=== PATIENT | female | born 1990 | race Caucasian/White ===

== ENCOUNTER 2020-07-12 09:34 | Outpatient (REF) | payer OTHER, SELFPAY ==
[2020-07-12 15:56] LABS: CT PCR NOT DETECTED (Not Detect.); NG PCR NOT DETECTED (Not Detect.)
[2020-07-13 09:28] LABS: BV Int Neg Control Negative (Negative); BV Int Pos Control Positive (Positive)
== END 2020-07-12 09:35 | disposition home or self-care (01) ==
LOC: HO.LAB 09:34
PROVIDERS: PCP Internal Medicine; Visit Provider Advanced Practice Midwife
DX: Z01.419 Encounter for gynecological examination (general) (routine) without abnormal findings (principal); N89.8 Other specified noninflammatory disorders of vagina; Z15.01 Genetic susceptibility to malignant neoplasm of breast; Z15.09 Genetic susceptibility to other malignant neoplasm; N94.10 Unspecified dyspareunia; Z30.431 Encounter for routine checking of intrauterine contraceptive device; R10.2 Pelvic and perineal pain
CPT/HCPCS: 87480; 87491; 87510; 87591; 87660

== ENCOUNTER 2020-07-22 11:15 | Outpatient (REF) | payer OTHER, SELFPAY ==
--- NOTE | 2020-07-22 11:26 | US_ITS ---
EXAMINATION: US PELVIS, COMPLETE CLINICAL INFORMATION: Pelvic and perineal pain. ADDITIONAL HISTORY: LMP on 07/17/2020. COMPARISON: Pelvic ultrasound on 09/09/2018 TECHNIQUE: Transabdominal and transvaginal imaging was performed. FINDINGS: The uterus measures 8.3 x 3.6 x 4.0 cm. The uterus is anteverted. No uterine masses are identified. Endometrium: 0.8 cm. The visualized endometrium appears slightly heterogeneous. An Intrauterine device is seen within the endometrial canal. The distal portion of the IUD terminates within the lower uterine segment. Right ovary: 3.6 x 2.5 x 2.6cm for a volume of 12.3 mL. Color flow is demonstrated within the right ovary.No adnexal masses are identified. The right ovary is unremarkable in appearance. Left ovary: 2.9 x 1.8 x 1.8cm for a volume of 4.9 mL. Normal color flow is demonstrated within the left ovary.Within the left ovary is a focal hyperechoic focus measuring 0.9 x 0.7 x 0.7 cm. This is not clearly identified on the comparison ultrasound from 2019. Free Fluid: None US/US transvaginal IMPRESSION: 1. An intrauterine device is seen within the endometrial canal. The distal portion of the IUD terminates within the lower uterine segment. 2. There is a 9 mm hyperechoic focus within the left ovary, new from the comparison examination. Recommend ultrasound follow-up in 8-12 weeks.
--- NOTE | 2020-07-22 11:26 | US_ITS ---
EXAMINATION: US PELVIS, COMPLETE CLINICAL INFORMATION: Pelvic and perineal pain. ADDITIONAL HISTORY: LMP on 07/17/2020. COMPARISON: Pelvic ultrasound on 09/09/2018 TECHNIQUE: Transabdominal and transvaginal imaging was performed. FINDINGS: The uterus measures 8.3 x 3.6 x 4.0 cm. The uterus is anteverted. No uterine masses are identified. Endometrium: 0.8 cm. The visualized endometrium appears slightly heterogeneous. An Intrauterine device is seen within the endometrial canal. The distal portion of the IUD terminates within the lower uterine segment. Right ovary: 3.6 x 2.5 x 2.6cm for a volume of 12.3 mL. Color flow is demonstrated within the right ovary.No adnexal masses are identified. The right ovary is unremarkable in appearance. Left ovary: 2.9 x 1.8 x 1.8cm for a volume of 4.9 mL. Normal color flow is demonstrated within the left ovary.Within the left ovary is a focal hyperechoic focus measuring 0.9 x 0.7 x 0.7 cm. This is not clearly identified on the comparison ultrasound from 2019. Free Fluid: None US/US pelvic complete IMPRESSION: 1. An intrauterine device is seen within the endometrial canal. The distal portion of the IUD terminates within the lower uterine segment. 2. There is a 9 mm hyperechoic focus within the left ovary, new from the comparison examination. Recommend ultrasound follow-up in 8-12 weeks.
== END 2020-07-22 11:16 | disposition home or self-care (01) ==
LOC: HO.US 11:15
PROVIDERS: PCP Internal Medicine; Visit Provider Advanced Practice Midwife
DX: R10.2 Pelvic and perineal pain (principal)
CPT/HCPCS: 76830; 76856

== ENCOUNTER 2020-07-28 16:57 | Outpatient (REF) | payer OTHER, SELFPAY ==
[2020-07-28 18:29] LABS: COVID-19 Test Negative (Negative); IDNOW Serial# 55D5AD1C
== END 2020-07-28 16:58 | disposition home or self-care (01) ==
LOC: HO.EMPCOV 16:57
PROVIDERS: Visit Provider Internal Medicine
DX: Z20.828 Contact with and (suspected) exposure to other viral communicable diseases (principal)
CPT/HCPCS: 87635; C9803

== ENCOUNTER → 2020-08-05 10:31 | Outpatient (BNVA) | payer OTHER, SELFPAY | PROVIDERS: PCP Internal Medicine; Visit Provider Advanced Practice Midwife | DX: Z76.89 Persons encountering health services in other specified circumstances (principal) ==

== ENCOUNTER 2020-09-14 11:49 | Outpatient (REF) | payer OTHER, SELFPAY ==
[2020-09-14 12:06] LABS: COVID-19 Test Negative (Negative)
== END 2020-09-14 11:50 | disposition home or self-care (01) ==
LOC: HO.EMPCOV 11:49
PROVIDERS: Visit Provider Internal Medicine
DX: Z20.822 Contact with and (suspected) exposure to COVID-19 (principal)
CPT/HCPCS: 36415; 87635; C9803

== ENCOUNTER → 2020-09-20 11:04 | Outpatient (BNVA) | payer OTHER, SELFPAY | PROVIDERS: PCP Internal Medicine; Visit Provider Surgery ==

== ENCOUNTER 2020-09-22 11:07 | Outpatient (REF) | payer OTHER, SELFPAY ==
--- NOTE | 2020-09-22 11:10 | XR_ITS ---
EXAMINATION: XR CHEST CLINICAL INFORMATION: Shortness of breath COMPARISON: Previous chest x-ray June 2015 TECHNIQUE: 2 views of the chest were obtained. FINDINGS: No significant abnormality is noted involving the heart, lungs, mediastinum, bony thorax or soft tissues. XR/XR chest 2V IMPRESSION: Unremarkable examination.
--- NOTE | 2020-09-22 11:10 | US_ITS ---
EXAMINATION: PELVIC ULTRASOUND CLINICAL INFORMATION: Pelvic and perineal pain COMPARISON: Previous ultrasound most recent July 2020 TECHNIQUE: Transabdominal and transvaginal pelvic ultrasound was performed. Transvaginal exam was performed for better visualization of the uterus, IUD and ovaries FINDINGS: The uterus is anteverted and measures 7.2 x 3.7 x 4.4 cm in dimension. No focal uterine lesion is seen. There is an IUD in the uterus. This appears slightly low in position seen in the lower uterine segment. This is 1.7 cm from the superior fundal Doppler the endometrium. This is similar position to previous exam. There is a nabothian cyst in the cervix. The right ovary measures 2.6 x 2.1 x 2.2 cm and is normal-appearing. The left ovary measures 2.8 x 1.9 x 2 cm. There is a 6 x 5 x 6 mm echogenic area in the left ovary that is similar to previous exam. There is no fluid in the pelvis. US/US pelvic complete IMPRESSION: IUD in the uterus. The IUD appears slightly low in position in the lower uterine segment 1.7 cm from the top of the fundal endometrium. This is unchanged from July 2020 exam.
--- NOTE | 2020-09-22 11:10 | US_ITS ---
EXAMINATION: PELVIC ULTRASOUND CLINICAL INFORMATION: Pelvic and perineal pain COMPARISON: Previous ultrasound most recent July 2020 TECHNIQUE: Transabdominal and transvaginal pelvic ultrasound was performed. Transvaginal exam was performed for better visualization of the uterus, IUD and ovaries FINDINGS: The uterus is anteverted and measures 7.2 x 3.7 x 4.4 cm in dimension. No focal uterine lesion is seen. There is an IUD in the uterus. This appears slightly low in position seen in the lower uterine segment. This is 1.7 cm from the superior fundal Doppler the endometrium. This is similar position to previous exam. There is a nabothian cyst in the cervix. The right ovary measures 2.6 x 2.1 x 2.2 cm and is normal-appearing. The left ovary measures 2.8 x 1.9 x 2 cm. There is a 6 x 5 x 6 mm echogenic area in the left ovary that is similar to previous exam. There is no fluid in the pelvis. US/US transvaginal IMPRESSION: IUD in the uterus. The IUD appears slightly low in position in the lower uterine segment 1.7 cm from the top of the fundal endometrium. This is unchanged from July 2020 exam.
== END 2020-09-22 11:08 | disposition home or self-care (01) ==
LOC: HO.US 11:07
PROVIDERS: PCP Internal Medicine; Visit Provider Advanced Practice Midwife
DX: R10.2 Pelvic and perineal pain (principal); R06.02 Shortness of breath
CPT/HCPCS: 71046; 76830; 76856

== ENCOUNTER 2020-09-29 06:39 | Day surgery (SDC) | payer OTHER, SELFPAY ==
[2020-09-22 13:33] VITALS: BMI 46.6
--- NOTE | 2020-09-28 10:28 | P.CONAN_ITS ---
Documented by User: Claire Dunbar 09/28/20 10:29 HPI - Anesthesia Eval Consult details Narrative: 30yo F for Upper Endoscopy PMFSH Past Medical History Medical History BRCA gene mutation positive History of postoperative nausea and vomiting Hx of migraine headaches Ovarian anomaly Vitamin D deficiency Family History Family History Maternal Grandmother History of breast cancer Paternal Aunt History of breast cancer History of ovarian cancer Paternal Grandmother History of breast cancer Maternal Grandfather History of lung cancer Father Lymphoma Mother Hypertension Sister No problems noted. Surgical History Surgical History History of cholecystectomy History of sleeve gastrectomy Hx of wisdom tooth extraction Social History Social History Alcohol intake: current Alcohol intake frequency: holidays/special occasions only Smoking Status: Never smoker Use of substances other than those prescribed or required for medical reasons: No Advance Directives: No (unknown) Advance Directives Information Provided: No Recently lost weight without trying: No Sexual orientation: Straight/Heterosexual Gender identity: female Meds Allergies Allergy/AdvReac Type Severity Reaction Status Date / Time No Known Allergies Allergy Verified 09/20/20 12:27 [No Known Allergies*] Home Medications Medication Instructions Recorded Confirmed Type cholecalciferol (vitamin D3) 250 250 mcg PO DAILY 07/12/20 09/22/20 History mcg (10,000 unit) capsule copper 380 square mm intrauterine INTRAUTERINE 07/12/20 09/20/20 History device multivitamin 1 tab PO DAILY 09/20/20 09/22/20 History Exam Exam Date and Time: September 28, 2020 1028 Height,Weight and Vital Signs: Height 5 ft 5.5 in Weight 129.183 kg Pertinent Lab Results Pertinent Lab Results: Laboratory Tests 07/16/20 07/16/20 15:50 15:50 WBC 9.5 Hgb 11.3 L Hct 35.3 L Plt Count 279 Sodium 139 Potassium 3.5 Chloride 106 Carbon Dioxide 26 BUN 13 Creatinine 0.79 Assessment and Plan Assessment Anesthesia Assessment: Chart Reviewed Documented by User: Carline Gutiérrez 09/29/20 07:54 [facility] Past Medical History Medical History BRCA gene mutation positive History of postoperative nausea and vomiting Hx of migraine headaches Ovarian anomaly Vitamin D deficiency Family History Family History Maternal Grandmother History of breast cancer Paternal Aunt History of breast cancer History of ovarian cancer Paternal Grandmother History of breast cancer Maternal Grandfather History of lung cancer Father Lymphoma Mother Hypertension Sister No problems noted. Family history of problems with anesthesia: No Surgical History Surgical History History of cholecystectomy History of sleeve gastrectomy Hx of wisdom tooth extraction History of Problems with Anesthesia: Yes (PONV) Social History Social History Alcohol intake: current Alcohol intake frequency: holidays/special occasions only Smoking Status: Never smoker Use of substances other than those prescribed or required for medical reasons: No Advance Directives: No (unknown) Advance Directives Information Provided: No Recently lost weight without trying: No Sexual orientation: Straight/Heterosexual Gender identity: female Meds Allergies Allergy/AdvReac Type Severity Reaction Status Date / Time No Known Allergies Allergy Verified 09/20/20 12:27 [No Known Allergies*] Home Medications Medication Instructions Recorded Confirmed Type cholecalciferol (vitamin D3) 250 250 mcg PO DAILY 07/12/20 09/22/20 History mcg (10,000 unit) capsule copper 380 square mm intrauterine INTRAUTERINE 07/12/20 09/20/20 History device multivitamin 1 tab PO DAILY 09/20/20 09/22/20 History Exam Height,Weight and Vital Signs: Vital Signs Temp Pulse Resp BP Pulse Ox 09/29/20 07:01 97 F 67 18 110/52 L 98 Narrative Narrative: Patient states unable to give urine sample. Aware of possible anesthetic risks with early . States absolutely no chance of . Airway Mallampati Class: II TM Dist: >3cm Neck ROM: Full Loose/Missing/Broken Teeth: No Heart: RRR Lungs: CTAB Assessment and Plan Assessment Anesthesia Assessment: Anesthesia Plan Discussed and Chart Reviewed Final Anesthetic Review NPO: Yes ASA Class: III Final Preanesthetic Review: No Changes in Pt Med Stat, Meds/Allgs Chart Reviewed, Consent Obtained/Reviewed and Anes Risks/Benef Reviewed Patient Risk: Intermediate Procedure Risk: Low Anesthetic Plan Anesthetic Plan: MAC: Disposition: Standard PACU
--- NOTE | 2020-09-28 15:16 | MHC.SHP ---
Pre-Procedural Eval Section B Chief Complaint: reflux Allergies: Allergies Allergy/AdvReac Type Severity Reaction Status Date / Time No Known Allergies Allergy Verified 09/20/20 12:27 [No Known Allergies*] Plan I have reviewed the history and physical and performed a pertinent physical examination on my patient. No changes have occurred unless specified.
[2020-09-29 07:01] VITALS: BP 110/52; PULSE 67; RESP 18; TEMP 36.1; O2SAT 98
[2020-09-29] MEDS: Lactated Ringers 1,000 ML 100 ML IVCONT (07:15)
[2020-09-29] MEDS: ondansetron HCL 4 MG/2 ML VIAL IVPUSH (07:50)
--- NOTE | 2020-09-29 08:06 | PM.OP ---
Brief Operative Note Date of Service: 09/29/20 Pre-op diagnosis: History of sleeve gastrectomy with weight gain Post-op diagnosis: other (Same and normal upper endoscopy) Procedure: Esophagogastroduodenoscopy and antral biopsy x2 Implants: None Surgeon: Yari Cm MD Anesthesia: MAC Estimated blood loss (mL): 0 Pathology: other (Antrum x2) Condition: stable Disposition: PACU
[2020-09-29 08:33] VITALS: BP 112/60; PULSE 65; RESP 12; TEMP 36.4; O2SAT 99
[2020-09-29 08:47] VITALS: BP 105/59; PULSE 72; RESP 18; O2SAT 97
--- NOTE | 2020-09-29 08:55 | OP_ITS ---
SURGEON: Yari Cm MD PREOPERATIVE DIAGNOSIS: POSTOPERATIVE DIAGNOSIS: PROCEDURE PERFORMED: Esophagogastroduodenoscopy and antral biopsy x2. ESTIMATED BLOOD LOSS: COMPLICATIONS: None. ANESTHESIA: Total intravenous anesthesia with propofol given by the nurse tie inspector. ASSISTANTS: None. SPECIMENS: PREPROCEDURE DIAGNOSIS: Weight gain after sleeve gastrectomy. POSTPROCEDURE DIAGNOSIS: Normal sleeve gastrectomy. CONDITION: Postprocedure, good. DESCRIPTION OF PROCEDURE: The patient was brought into the operating room on the stretcher and placed in the left lateral decubitus position. A safety time-out was performed. A bite block was placed between the teeth. Total intravenous anesthesia was administered by the nurse tie inspector. Once the patient was adequately sedated, the gastroscope was placed in the posterior oropharynx, passed down the esophagus, evaluating the esophageal mucosa which was normal. Gastroscope was passed down the esophagus, evaluating the esophageal mucosa which was normal and then the GE junction was located at 37 cm from the incisors. There was no evidence of hiatal hernia. Gastroscope was passed to the gastric sleeve, which was normal size for age. There was no significant increase in size, torsion, or stenosis of the sleeve. The gastroscope was passed to the pre-pyloric region, where 2 biopsies were taken from the antrum to rule out H pylori. The gastroscope was passed through the pylorus into the duodenum, down to the 3rd portion of duodenum, all of which was normal. All of these portions of the upper endoscopy were documented using photo documentation. The gastroscope was retracted back into the stomach. Stomach was desufflated and gastroscope was removed without difficulty. The patient tolerated the procedure well and was sent to recovery room in stable condition. FINDINGS: Normal gastric sleeve slightly enlarged in size, but nothing significant. No evidence of hiatal hernia. There was no torsion or stenosis of the gastric sleeve. GE junction was located at 37 cm from the incisors. Yari Cm MD UM/MODL / [id number]
--- NOTE | 2020-09-29 09:16 | HO.POSTANES ---
Post Anesthesia Evaluation Post Anesthesia Evaluation Vital Signs: Vital Signs Temp Pulse Resp BP Pulse Ox 09/29/20 08:47 97.5 F 72 18 105/59 L 97 09/29/20 08:33 97.5 F 65 12 112/60 99 09/29/20 07:01 97 F 67 18 110/52 L 98 Anesthesia: Monitored Mental Status: Awake Pain Control: Satisfactory Nausea/Vomiting: None Hydration: Adequate Anesthesia-Related Issues: No Anes. Related Issues
== END 2020-09-29 09:18 | disposition home or self-care (01) ==
PROVIDERS: PCP Internal Medicine; Visit Provider Surgery
PROC: 0DJ08ZZ Inspection of Upper Intestinal Tract, Via Natural or Artificial Opening Endoscopic (ICD-10-PCS; CPT 43235; principal; 2020-09-29 08:00)
DX: K21.9 Gastro-esophageal reflux disease without esophagitis (principal); R06.02 Shortness of breath; E66.01 Morbid (severe) obesity due to excess calories; Z68.42 Body mass index [BMI] 45.0-49.9, adult; E55.9 Vitamin D deficiency, unspecified; Z98.84 Bariatric surgery status; Z90.49 Acquired absence of other specified parts of digestive tract; Z15.01 Genetic susceptibility to malignant neoplasm of breast
CPT/HCPCS: 43239; 88305; 88342; J2250; J2405

== ENCOUNTER → 2020-10-04 08:26 | Outpatient (BNVA) | payer OTHER, SELFPAY | PROVIDERS: PCP Internal Medicine; Visit Provider Surgery ==

== ENCOUNTER 2020-10-07 09:23 | Outpatient (REF) | payer OTHER, SELFPAY ==
[2020-10-07 10:04] LABS: MANUAL DIFF FLAG NO
[2020-10-07 10:11] LABS: Basophils Percent Auto 0.6 % (0-2); Eosinophils Absolute Auto 0.1 X10*3/uL (0.0-0.4); Hematocrit 35.8 % (37-47); Imm Gran Abs Auto 0.02 X10*3/uL (0.00-0.03); Imm Gran Pct Auto 0.3 % (0.0-0.4); Lymphocytes Absolute Auto 1.6 X10*3/uL (1.2-4.9); Lymphocytes Percent Auto 25.8 % (20-40); Mean Corpuscular HGB Conc 33.5 g/dl (31.0-35.0); Mean Corpuscular Hemoglobin 27.5 pg (27.0-33.0); Mean Corpuscular Volume 81.9 fL (80-98); Mean Platelet Volume 12.3 fL (9.4-12.3); Monocytes Absolute Auto 0.5 X10*3/uL (0.1-1.2); Monocytes Percent Auto 8.6 % (2-11); Neutrophils Percent Auto 63.7 % (45-73); Platelet Count 269 X10*3/uL (160-400); Red Blood Count 4.37 X10*6/uL (4.20-5.50); Red Cell Distribution Width 13.1 % (11.0-16.0); White Blood Count 6.3 X10*3/uL (4.8-10.8)
[2020-10-07 10:44] LABS: Alanine Aminotransferase 23 U/L (0-31); Albumin Level 4.2 g/dL (3.5-5.0); Alkaline Phosphatase 67 U/L (39-117); Anion Gap 13 (12-20); Aspartate Amino Transferase 19 U/L (5-31); Bilirubin Total 0.7 mg/dL (0.0-1.0); Blood Urea Nitrogen 15 mg/dL (9-16); C Reactive Protein 0.79 mg/dL (< or = 0.50); Calcium 9.2 mg/dL (8.4-10.2); Carbon Dioxide 25 mmol/L (22-29); Chloride 105 mmol/L (96-108); Cholesterol 167 mg/dL; Estimated Glomerular Filt Rate > 60; Glucose Fasting 89 mg/dL (60-99); HDL Cholesterol 42 mg/dL; Iron 80 mcg/dL (30-160); LDL Cholesterol Calculated 108 mg/dl; Percent Iron Saturation 21 % (15-50); Potassium 4.2 mmol/L (3.3-5.1); Sodium 139 mmol/L (135-145); Total Iron Binding Capacity 378 mcg/dL (228-428); Triglycerides 89 mg/dL; Unsaturated Iron Binding 298 ug/dL
[2020-10-07 10:50] LABS: Thyroid Stimulating Hormone 1.41 uIU/mL (0.32-4.0); Vitamin D 25-OH Total 25.4 ng/mL (>30)
[2020-10-07 11:11] LABS: Vitamin B12 845 pg/mL (200-900)
[2020-10-08 06:27] LABS: CA-125 7 U/mL (<35)
[2020-10-08 13:13] LABS: Calcium (PTHI) 9.4 mg/dL (8.6-10.2); PTHI 27 pg/mL (14-64)
[2020-10-11 16:12] LABS: Zinc 71 mcg/dL (60-130)
[2020-10-12 19:47] LABS: Vitamin A 31 mcg/dL (38-98)
[2020-10-14 06:07] LABS: Vitamin B1 <6 nmol/L (8-30)
== END 2020-10-07 09:24 | disposition home or self-care (01) ==
LOC: HO.10HDL 09:23
PROVIDERS: Absent Provider Advanced Practice Midwife; Visit Provider Surgery
DX: Z01.818 Encounter for other preprocedural examination (principal); R10.2 Pelvic and perineal pain; Q50.39 Other congenital malformation of ovary; Z15.01 Genetic susceptibility to malignant neoplasm of breast; Z15.09 Genetic susceptibility to other malignant neoplasm
CPT/HCPCS: 36415; 80053; 80061; 82306; 82607; 83540; 83970; 84425; 84443; 84590; 84630; 85025; 86140; 86304

== ENCOUNTER → 2020-10-19 08:21 | Outpatient (BNVA) | payer OTHER, SELFPAY | PROVIDERS: PCP Internal Medicine; Visit Provider Dietitian, Registered ==

== ENCOUNTER → 2020-10-22 16:11 | Outpatient (BNVA) | payer OTHER, SELFPAY | PROVIDERS: PCP Internal Medicine; Visit Provider Advanced Practice Midwife ==

== ENCOUNTER → 2020-10-28 08:16 | Outpatient (BNVA) | payer OTHER, SELFPAY | PROVIDERS: PCP Internal Medicine; Visit Provider Dietitian, Registered ==

== ENCOUNTER → 2020-11-01 11:46 | Outpatient (BNVA) | payer OTHER, SELFPAY | PROVIDERS: PCP Internal Medicine; Visit Provider Surgery ==

== ENCOUNTER → 2020-11-22 09:17 | Outpatient (BNVA) | payer OTHER, SELFPAY | PROVIDERS: PCP Internal Medicine; Visit Provider Surgery ==

== ENCOUNTER → 2020-12-14 15:48 | Outpatient (BNVA) | payer OTHER, SELFPAY | PROVIDERS: PCP Internal Medicine; Visit Provider Surgery ==

== ENCOUNTER → 2021-01-04 14:45 | Outpatient (BNVA) | payer OTHER, SELFPAY | PROVIDERS: PCP Internal Medicine; Visit Provider Surgery ==

== ENCOUNTER → 2021-02-04 14:33 | Outpatient (BNVA) | payer OTHER, SELFPAY | PROVIDERS: PCP Internal Medicine; Visit Provider Surgery ==

== ENCOUNTER 2021-02-09 11:04 | Outpatient (REF) | payer OTHER, SELFPAY ==
--- NOTE | ~2021-02-09 | US_ITS ---
EXAMINATION:US transvaginal, US pelvic complete CLINICAL INFORMATION: Reason for Exam EVALUATE LEFT OVARIAN ECHOGENICITY COMPARISON: No priors available. LMP: 01/09/2021 FINDINGS: UTERUS: The uterus is anteverted. Size: 8.1 x 3.4 x 4.9 cm. Uterine mass: There is no uterine mass. Cervix: Grossly unremarkable. Endometrium: No ultrasound evidence of endometrial lesion. endometrial thickness measures 1.2 cm IUD found in place within the endometrium. ADNEXA: Normal Right ovary: Mildly complex septated cyst in the right ovary 2.9 x 1.8 x 3 cm. Left ovary: There is echogenic 6 x 4 mm structure in the left ovary raise concern for possible dermoid. This has not changed. Doppler exam: Normal Doppler flow identified in both ovaries. FREE FLUID: Trace amount of free fluid. OTHER FINDINGS: None US/US pelvic complete IMPRESSION: 1. IUD in place properly positioned. 2. Mildly complex cystic structure found in the right ovary 3 cm. Newly found on today's exam. Consider correlation with follow-up ultrasound in 6-12 weeks. 3. Redemonstration of subcentimeter echogenic structure in the left ovary, nonspecific this has not changed.
--- NOTE | ~2021-02-09 | US_ITS ---
EXAMINATION:US transvaginal, US pelvic complete CLINICAL INFORMATION: Reason for Exam EVALUATE LEFT OVARIAN ECHOGENICITY COMPARISON: No priors available. LMP: 01/09/2021 FINDINGS: UTERUS: The uterus is anteverted. Size: 8.1 x 3.4 x 4.9 cm. Uterine mass: There is no uterine mass. Cervix: Grossly unremarkable. Endometrium: No ultrasound evidence of endometrial lesion. endometrial thickness measures 1.2 cm IUD found in place within the endometrium. ADNEXA: Normal Right ovary: Mildly complex septated cyst in the right ovary 2.9 x 1.8 x 3 cm. Left ovary: There is echogenic 6 x 4 mm structure in the left ovary raise concern for possible dermoid. This has not changed. Doppler exam: Normal Doppler flow identified in both ovaries. FREE FLUID: Trace amount of free fluid. OTHER FINDINGS: None US/US transvaginal IMPRESSION: 1. IUD in place properly positioned. 2. Mildly complex cystic structure found in the right ovary 3 cm. Newly found on today's exam. Consider correlation with follow-up ultrasound in 6-12 weeks. 3. Redemonstration of subcentimeter echogenic structure in the left ovary, nonspecific this has not changed.
== END 2021-02-09 11:05 | disposition home or self-care (01) ==
LOC: HO.US 11:04
PROVIDERS: Visit Provider Obstetrics & Gynecology Gynecologic Oncology
DX: N83.201 Unspecified ovarian cyst, right side (principal)
CPT/HCPCS: 76830; 76856

== ENCOUNTER → 2021-03-08 16:01 | Outpatient (BNVA) | payer OTHER, SELFPAY | PROVIDERS: PCP Internal Medicine; Referring Provider Internal Medicine; Visit Provider Surgery ==

== ENCOUNTER → 2021-04-04 15:04 | Outpatient (BNVA) | payer OTHER, SELFPAY | PROVIDERS: PCP Internal Medicine; Visit Provider Surgery ==

== ENCOUNTER → 2021-05-30 15:01 | Outpatient (BNVA) | payer OTHER, SELFPAY | PROVIDERS: PCP Internal Medicine; Visit Provider Surgery | DX: E66.01 Morbid (severe) obesity due to excess calories (principal); E66.9 Obesity, unspecified ==

== ENCOUNTER → 2021-06-30 15:03 | Outpatient (BNVA) | payer OTHER, SELFPAY | PROVIDERS: PCP Internal Medicine; Referring Provider Internal Medicine; Visit Provider Physician Assistant Surgical ==

== ENCOUNTER → 2021-07-11 10:01 | Outpatient (BNVA) | payer OTHER, SELFPAY | PROVIDERS: PCP Internal Medicine; Referring Provider Internal Medicine; Visit Provider Dietitian, Registered | DX: E66.01 Morbid (severe) obesity due to excess calories (principal) | CPT/HCPCS: 97803 ==

== ENCOUNTER 2021-07-14 09:02 | Outpatient (REF) | payer OTHER, SELFPAY ==
[2021-07-14 14:35] LABS: CT PCR NOT DETECTED (Not Detect.); NG PCR NOT DETECTED (Not Detect.)
== END 2021-07-14 09:03 | disposition home or self-care (01) ==
LOC: HO.LAB 09:02
PROVIDERS: PCP Internal Medicine; Visit Provider Advanced Practice Midwife
DX: Z01.419 Encounter for gynecological examination (general) (routine) without abnormal findings (principal); Z20.822 Contact with and (suspected) exposure to COVID-19
CPT/HCPCS: 87491; 87591; 88142

== ENCOUNTER 2021-08-12 11:53 | Outpatient (REF) | payer OTHER, SELFPAY ==
--- NOTE | ~2021-08-12 | MR_ITS ---
EXAMINATION: MR BREAST WITHOUT AND WITH CONTRAST, BILATERAL CLINICAL INFORMATION: High-risk screening. BRCA1 gene mutation. COMPARISON: 01/15/2020, 12/12/2018 and 11/13/2017 TECHNIQUE: Imaging was performed with a dedicated breast coil. Prior to the administration of contrast, bilateral axial T1 and bilateral axial T2 weighted sequences were obtained. After the uneventful administration of?10 mL of Gadavist, dynamic contrast-enhanced VIBRANT series through the breasts in the axial plane were performed. Subtracted images were performed and reviewed. A delayed sagittal sequence through both breasts was acquired. Additionally, CAD post-processing, including maximum intensity projections, 3-D reconstructions and kinetic analysis, were performed an independent workstation and reviewed by the interpreting radiologist is a portion of this exam. FINDINGS: The breasts are comprised of scattered fibroglandular parenchyma. The tissue undergoes mild background enhancement. LEFT BREAST: No suspicious masslike or non-masslike enhancement. No abnormal skin thickening or nipple retraction. No abnormal architectural distortion. Review of the T2 weighted images demonstrates no fibrocystic changes or dilated ducts. Review of kinetic images reveals no additional findings. Volume renderings demonstrate a subtle increase in background enhancement in the central left breast compared to the right unchanged from prior MR exams. RIGHT BREAST: No suspicious masslike or non-masslike enhancement. No abnormal skin thickening or nipple retraction. No abnormal architectural distortion. Review of the T2 weighted images demonstrates no fibrocystic changes or dilated ducts. Review of kinetic images reveals no additional findings. There are bilateral normal appearing intramammary lymph nodes. There is no suspicious internal mammary chain or axillary adenopathy. Limited views of the chest and abdomen are unremarkable. MR/MR breast BI wo/w con IMPRESSION: No MR specific evidence of malignancy. ASSESSMENT: LEFT BREAST: BI-RADS Category 2, benign finding. RIGHT BREAST: BI-RADS Category 2, benign finding. RECOMMENDATIONS: Bilateral breast MRI in 12 months time per published guidelines in high-risk patients.
== END 2021-08-12 11:54 | disposition home or self-care (01) ==
LOC: HO.MRI 11:53
PROVIDERS: PCP Internal Medicine; Visit Provider Internal Medicine Medical Oncology
DX: Z15.01 Genetic susceptibility to malignant neoplasm of breast (principal)
CPT/HCPCS: 77049; A9585

== ENCOUNTER → 2021-08-15 10:01 | Outpatient (BNVA) | payer OTHER, SELFPAY | PROVIDERS: PCP Internal Medicine; Referring Provider Internal Medicine; Visit Provider Dietitian, Registered | DX: E66.01 Morbid (severe) obesity due to excess calories (principal) | CPT/HCPCS: 97803 ==

== ENCOUNTER 2021-09-07 13:08 | Outpatient (REF) | payer OTHER, SELFPAY ==
--- NOTE | ~2021-09-07 | XR_ITS ---
EXAMINATION: XR HIP, LEFT CLINICAL INFORMATION: Unspecified injury of the left hip. Initial encounter. COMPARISON: None TECHNIQUE: Single frontal view of the pelvis and 2 views of the left hip were obtained. FINDINGS: Pelvis: The bony alignment is intact. Cortices are intact. Both SI joints and symphysis pubis is unremarkable. Visualized proximal part of both femur appear unremarkable. Incidental note is made of presence of an intrauterine contraceptive device. Left hip: The bony alignment is intact. The cortices are intact. Articular margins, joint space and periarticular soft tissues are unremarkable. XR/XR hip LT w PEL1V IMPRESSION: Unremarkable radiographic appearance of the pelvis and left hip.
== END 2021-09-07 13:09 | disposition home or self-care (01) ==
LOC: HO.XRAY 13:08
PROVIDERS: PCP Internal Medicine; Visit Provider Anesthesiology
DX: S79.912D Unspecified injury of left hip, subsequent encounter (principal)
CPT/HCPCS: 73502

== ENCOUNTER 2021-09-23 13:24 | Outpatient (REF) | payer OTHER, SELFPAY ==
--- NOTE | ~2021-09-23 | XR_ITS ---
EXAMINATION: XR FOOT, LEFT CLINICAL INFORMATION: M79.672 - Pain in left foot COMPARISON: None TECHNIQUE: AP, lateral, and oblique views of the left foot. FINDINGS: There is no acute or healing fracture, dislocation, destructive process. Normal bony mineralization. No destructive process or periostitis. No focal joint narrowing or erosive change. Subtalar joint appears normal. Retrocalcaneal recess is preserved. XR/XR foot LT min 3V IMPRESSION: Normal left foot.
== END 2021-09-23 13:25 | disposition home or self-care (01) ==
LOC: HO.HOSX 13:24
PROVIDERS: PCP Internal Medicine; Visit Provider Physician Assistant
DX: M79.672 Pain in left foot (principal)
CPT/HCPCS: 73630

== ENCOUNTER → 2021-09-23 14:09 | Outpatient (BNVA) | payer OTHER, SELFPAY | PROVIDERS: PCP Internal Medicine; Visit Provider Internal Medicine | DX: Z13.89 Encounter for screening for other disorder (principal) | CPT/HCPCS: 99202 ==

== ENCOUNTER 2022-06-21 14:59 | Outpatient (REF) | payer OTHER, SELFPAY | END 2022-06-21 15:00 | disposition home or self-care (01) | LOC: HO.LAB 14:59 | PROVIDERS: Visit Provider Hospitalist | DX: R30.0 Dysuria (principal); R31.9 Hematuria, unspecified | CPT/HCPCS: 87086 ==

== ENCOUNTER 2022-07-18 10:16 | Outpatient (REF) | payer OTHER, SELFPAY ==
[2022-07-18 16:40] LABS: CT PCR NOT DETECTED (Not Detect.); NG PCR NOT DETECTED (Not Detect.)
[2022-07-19 13:57] LABS: BV Int Neg Control Negative (Negative); BV Int Pos Control Positive (Positive)
== END 2022-07-18 10:17 | disposition home or self-care (01) ==
LOC: HO.LNP 10:16
PROVIDERS: Visit Provider Advanced Practice Midwife
DX: Z01.419 Encounter for gynecological examination (general) (routine) without abnormal findings (principal)
CPT/HCPCS: 87480; 87491; 87510; 87591; 87660

== ENCOUNTER 2022-07-18 10:51 | Outpatient (REF) | payer OTHER, SELFPAY ==
[2022-07-19 07:06] LABS: Syphilis Screen Nonreactive (Nonreactive)
[2022-07-19 07:37] LABS: HIV AB/AG Nonreactive (Nonreactive); HIV Num 1 0.09 S/CO (0.00-0.99); Hepatitis B Core Antibody Nonreactive (Nonreactive); ~HepC Num1 0.21 S/CO (0.00-0.79); ~Hepatitis C Antibody Nonreactive (Nonreactive)
== END 2022-07-18 10:52 | disposition home or self-care (01) ==
LOC: HO.10HDL 10:51
PROVIDERS: Visit Provider Advanced Practice Midwife
DX: Z11.4 Encounter for screening for human immunodeficiency virus [HIV] (principal); Z20.2 Contact with and (suspected) exposure to infections with a predominantly sexual mode of transmission
CPT/HCPCS: 36415; 86704; 86780; 86803; 87389

== ENCOUNTER 2022-08-21 15:02 | Outpatient (REF) | payer OTHER, SELFPAY ==
--- NOTE | ~2022-08-21 | US_ITS ---
EXAMINATION: US PELVIS CLINICAL INFORMATION: Congenital malformation of the ovary. Question dermoid. COMPARISON: 02/09/2021 TECHNIQUE: Ultrasound of the pelvis is performed using both transabdominal and transvaginal transducers along with Doppler. Transvaginal imaging is performed due to inadequate visualization transabdominally. FINDINGS: Uterus: The uterus is anteverted and measures 7.5 x 3.7 x 4.1 cm. The double wall endometrial thickness is 7 mm. There is an IUD in place. This appears low in position within the uterus, and obliquely positioned. The uterus is smooth in contour and has normal myometrial echogenicity. No visible fibroid. Adnexa: Both ovaries are visualized. There is normal color flow to the adnexa. There is no ovarian torsion. There is no pelvic ascites or fluid collection. Right ovary measures 3 x 2.5 x 3.7 cm. Multiple follicles noted. Hypoechoic region in the right adnexa which measures 1.8 x 1.5 x 1.5 cm. This could represent an additional complex cyst. Based on the positioning, this could also be a pedunculated uterine fibroid. Left ovary measures 3.3 x 2.5 x 3.6 cm. Redemonstration of the dermoid measuring 2.3 x 2 x 2.8 cm. US/US pelvic and transvaginal IMPRESSION: 1. Redemonstration of left ovarian dermoid. There is a hypoechoic region in the right adnexa which could represent a complex cyst or a pedunculated uterine fibroid. 2. IUD in place, which appears low in position, and obliquely positioned.
== END 2022-08-21 15:03 | disposition home or self-care (01) ==
LOC: HO.US 15:02
PROVIDERS: Visit Provider Advanced Practice Midwife
DX: Q50.39 Other congenital malformation of ovary (principal)
CPT/HCPCS: 76830; 76856

== ENCOUNTER → 2022-09-06 08:29 | Outpatient (BNVA) | payer OTHER, SELFPAY | PROVIDERS: PCP Internal Medicine; Visit Provider Advanced Practice Midwife | DX: Q50.39 Other congenital malformation of ovary (principal) ==

== ENCOUNTER 2022-09-06 10:21 | Outpatient (REF) | payer OTHER, SELFPAY ==
[2022-09-07 10:23] LABS: CA-125 59 U/mL (<35)
== END 2022-09-06 10:22 | disposition home or self-care (01) ==
LOC: HO.WFDLDS 10:21
PROVIDERS: Visit Provider Advanced Practice Midwife
DX: N83.299 Other ovarian cyst, unspecified side (principal)
CPT/HCPCS: 36415; 86304

== ENCOUNTER 2022-09-20 08:03 | Outpatient (REF) | payer OTHER, SELFPAY ==
--- NOTE | ~2022-09-20 | MR_ITS ---
EXAMINATION: MR PELVIS WITHOUT AND WITH CONTRAST CLINICAL INFORMATION: 31-year-old female with complex ovarian mass, BRCA 1 positive. COMPARISON: Pelvic ultrasound from 02/09/2021 and 08/21/2022 TECHNIQUE: MR imaging of the pelvis is performed on a high-field magnet using standard sequences without and with intravenous administration of 10 mL Gadavist. FINDINGS: Uterus and cervix: The anteflexed, anteverted uterus measures 8 x 3.4 x 4.8 cm (cervix to fundus x AP x transverse dimension). No evidence of cervical mass. A contraceptive device is located within the endometrium and the lower tip of the device is seen at the level of the internal cervical os. The junctional zone of myometrium is normal. No evidence of adenomyosis or uterine leiomyoma. Adnexa: The right ovary measures approximately 3.5 x 4.5 x 3.3 cm and left ovary approximately 3 x 2.9 x 2.8 cm. There are foci of intrinsic T1 signal shortening within each ovary that exhibit T2 signal shading, and largest of these in the right and left ovary measure up to 1.8 cm and 2.8 cm, respectively. The findings are consistent with endometriosis involving the ovaries. There are no masses of fat signal intensity. No evidence of ovarian dermoid. The largest follicles within the right and left ovary measure 1.5 cm and 1.2 cm, respectively. Free fluid: None. Lymphovascular: Unremarkable. Urinary bladder: Urinary bladder and urethra are normal. Bowel: No dilated loops of bowel. The sigmoid colon and rectum are unremarkable. Skeletal: There appears to be transitional lumbosacral anatomy. At the lumbosacral junction, there is mild degenerative T2 signal loss of the intervertebral disc with posterior annular fissure and minimal central disc protrusion. MR/MR pelvis wo/w con IMPRESSION: * Findings are consistent with endometriosis of the ovaries. No evidence of ovarian dermoid. * No evidence of uterine leiomyoma or adenomyosis.
== END 2022-09-20 08:04 | disposition home or self-care (01) ==
LOC: HO.MRI 08:03
PROVIDERS: PCP Internal Medicine; Visit Provider Obstetrics & Gynecology Gynecologic Oncology
DX: N80.103 Endometriosis of bilateral ovaries, unspecified depth (principal)
CPT/HCPCS: 72197; A9585

== ENCOUNTER 2023-05-09 15:12 | Outpatient (AMB) | payer OTHER, SELFPAY ==
--- NOTE | 2023-05-09 15:15 | MHC.OFFWIV ---
Intake Vital Signs 05/09/23 15:27 Height 5 ft 6 in Weight 255 lb BMI 41.2 BP 120/70 Blood Pressure Location Lt brachial Position Sitting Respiration 16 Pulse 67 Pulse Source Pulse Oximeter Pulse Oximetry (%) 99 Oxygen Delivery Method Room Air Intake Visit Reasons: weight management Patient Tobacco Use Status: Never used Tobacco Allergies No Known Allergies [No Known Allergies*] Allergy (Verified 02/15/23 16:50) HPI HPI Comments History of Present Illness Details 32-year-old female presents for weight management follow-up She was last seen on 02/15/2023. Mounjaro was ordered but declined by her health plan. Wegovy was later other but was not available. She was prescribed Saxenda which she started using weekly beginning 04/02/2023; she weighed 260 lb. She notes she has lost a total of 13 lb since starting the medication. She is currently on 3mg weekly and notes she is due for a refill. She is happy about her progress so far. Her goal is to lose 90 lb. She reports fatigue from the effect of the medication. She offers no acute symptoms. 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 Sexual orientation: Straight/Heterosexual Gender identity: Female Female Reproductive History Menstrual Age of Menarche: 14 Physical Exam Vital Signs: Last Vital Signs Pulse 67 05/09/23 15:27 Resp 16 05/09/23 15:27 BP 120/70 05/09/23 15:27 Pulse Ox 99 05/09/23 15:27 Oxygen Delivery Method Room Air 05/09/23 15:27 BMI result Body Mass Index 41.2 Assessment & Plan Assessment & Plan (1) Encounter for weight management: Code(s): Z76.89 - Persons encountering health services in other specified circumstances Plan: Current weight is 255 lb Current BMI is 41.2 Weight before weight management was 268 lb Saxenda refilled Healthy diet and routine exercise encouraged. Exercise May with improved fatigue Follow-up in 1-2 months or return sooner with new or worsening symptoms Verbalized understanding and agreed with treatment plan. Medications: Changed From liraglutide (weight loss) 0.6 mg (0.1 mL) subcut DAILY 4 weeks 15 mL 0RF To liraglutide (weight loss) (Saxenda) 3 mg (0.5 mL) subcut DAILY 4 weeks 14 mL 0RF Coding Level of Care Code Est Pt Level 2 (35396) Diagnoses Encounter for weight management Z76.89
[2023-05-09 15:27] VITALS: BP 120/70; PULSE 67; RESP 16; O2SAT 99; BMI 41.2
== END 2023-05-09 15:32 | disposition home or self-care (01) ==
LOC: HO.HMGWIW 15:12
PROVIDERS: PCP Internal Medicine
DX: Z76.89 Persons encountering health services in other specified circumstances (principal)
CPT/HCPCS: 99212

== ENCOUNTER 2023-05-30 14:06 | Outpatient (AMB) | payer OTHER, SELFPAY ==
[2023-05-30 14:08] VITALS: BP 120/70; PULSE 71; RESP 12; TEMP 36.3; O2SAT 99; BMI 41.2
--- NOTE | 2023-05-30 14:08 | MHC.OFFWIV ---
Intake Vital Signs 05/30/23 14:08 Height 5 ft 6 in Weight 255 lb BMI 41.2 BP 120/70 Blood Pressure Location Lt brachial Position Sitting Respiration 12 Pulse 71 Pulse Source Pulse Oximeter Temp 97.4 F Temp Source Temporal Artery Scan Pulse Oximetry (%) 99 Oxygen Delivery Method Room Air Intake Visit Reasons: wt mgmt Patient Tobacco Use Status: Never used Tobacco Cdl Program Coordinator Required: No Accompanied by: Self / Same As Patient Allergies No Known Allergies [No Known Allergies*] Allergy (Verified 05/30/23 14:20) Medication List - Last Reconciled 05/30/23 by Natty Calvo CNP cholecalciferol (vitamin D3) 250 mcg PO DAILY levonorgestrel (Liletta) intrauterine liraglutide (weight loss) (Saxenda) 3 mg (0.5 mL) subcut DAILY 4 weeks multivitamin 1 tab PO DAILY pen needle, diabetic (BD Ultra-Fine Micro Pen Needle) As directed Do you need a note to return to daycare/school/sports/work: No HPI HPI Comments History of Present Illness Details 32-year-old female presents for weight management follow-up. She was on Saxenda for 6 weeks. She notes she lost 13 lb while on the medication. However, the has not been on the medication for the past 2 weeks because the medication is not currently available nationwide. She has not gained or lose weight. She states notes she continues to exercise routinely and making healthy dietary changes. She denies acute symptoms at this time. 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 Sexual orientation: Straight/Heterosexual Gender identity: Female Female Reproductive History Menstrual Age of Menarche: 14 Review of Systems Const Details: Const Denies chills, Denies fatigue, Denies fever(s), Denies headache(s) and Denies weakness ENT Denies dizziness and Denies headache(s) Card Denies chest pain, Denies lightheadedness, Denies dyspnea and Denies other (Palpitations) Resp Denies cough, Denies dyspnea, Denies wheezing and Denies other ( shortness of breath) GI Denies abdominal pain, Denies melena, Denies hematochezia, Denies change in bowel habits, Denies dyspepsia and Denies nausea Denies hematuria and Denies dysuria Musc Denies abnormal gait, Denies myalgias, Denies arthralgias, Denies numbness and Denies tingling Skin/Breast Denies rash, Denies unusual bruising and Denies wounds Neuro Denies abnormal gait, Denies dizziness, Denies headache(s), Denies memory loss, Denies numbness, Denies Sensory deficit (Neuro), Denies tingling and Denies weakness Psych Denies anxiety, Denies depression, Denies memory loss Endo Denies cold intolerance, Denies fatigue, Denies heat intolerance, Denies polydipsia and Denies polyuria Aller/Immun Denies wheezing Physical Exam Vital Signs: Last Vital Signs Temp 97.4 F 05/30/23 14:08 Pulse 71 05/30/23 14:08 Resp 12 05/30/23 14:08 BP 120/70 05/30/23 14:08 Pulse Ox 99 05/30/23 14:08 Oxygen Delivery Method Room Air 05/30/23 14:08 BMI result Body Mass Index 41.2 Const Other: Const General: well developed; No acute distress Nutritional Appearance: well nourished Orientation/consciousness: patient oriented x3 HEENT Head: Yes normocephalic and Yes atraumatic Eyes General: appearance normal, both eyes and all related structures Pupils: Equal, round and reactive pupils present EOM: EOMs intact bilaterally Resp Effort & Inspection: normal respiratory effort Auscultation: clear to auscultation bilaterally Cardio Rate: regular rate Rhythm: regular rhythm Heart sounds: S1 normal heart sound present, S2 normal heart sound present, no gallops, no murmurs and no rubs Bruits: no abdominal aortic bruits and no carotid bruits Neuro General: patient oriented x3 and gait normal, no focal neuro deficit Cranial nerves: Yes Equal, round and reactive pupils present Psych Affect: normal affect Assessment & Plan Assessment & Plan (1) Morbid obesity with BMI of 40.0-44.9, adult: Code(s): E66.01 - Morbid (severe) obesity due to excess calories; Z68.41 - Body mass index [BMI] 40.0-44.9, adult Plan: She was on Saxenda for 6 weeks. She notes she lost 13 lb while on the medication. However, the has not been on the medication for the past 2 weeks because the medication is not currently available nationwide. She has not gained or lose weight. Her weight and BMI is unchanged since her last visit 3 weeks ago Bupropion ordered. Take as prescribed. Advised to avoid taking the medication close to bedtime to avoid sleep interruption Healthy diet and routine exercise encouraged Follow-up in 1 month or return sooner with symptoms or concerns Verbalized understanding and agreed with treatment plan. Medications: New bupropion HCl administer 8 hours apart 75 mg PO BID 30 days 60 tabs 1RF Coding Level of Care Code Est Pt Level 2 (67546) Diagnoses Morbid obesity with BMI of 40.0-44.9, adult E66.01; Z68.41
== END 2023-05-30 15:00 | disposition home or self-care (01) ==
PROVIDERS: PCP Internal Medicine; Visit Provider Family Medicine
DX: E66.01 Morbid (severe) obesity due to excess calories (principal); Z68.41 Body mass index [BMI] 40.0-44.9, adult
CPT/HCPCS: 99212

== ENCOUNTER 2023-06-25 10:00 | Outpatient (AMB) | payer OTHER, SELFPAY ==
--- NOTE | 2023-06-26 08:29 | AM.OFFVISNUR ---
Intake Intake Visit Reasons: TDAP Allergies No Known Allergies [No Known Allergies*] Allergy (Verified 05/30/23 14:20) Immunizations Boostrix Tdap 2.5 Lf unit-8 mcg-5 Lf/0.5 mL intramuscular syringe Performing Provider: Natty Calvo CNP Performing Location: [facility] Administered by: Taylor Hermosillo RN on 06/25/23 08:48 Dose Route Admin Location Dispensed Lot Number Expiration Date NDC Production Weigher 0.5 mL IM Right Deltoid 0.5 mL [id number] 08/08/25 34680-034-76 Touch-Writer VIS Given Date VIS Provided VIS Publication Date 06/25/23 Single Vaccine 21 Eligibility Eligibility Date Funding Source Not [facility] Eligible 06/25/23 Private Coding Assessment & Plan Assessment & Plan Orders: Orders TDaP Immunization 06/25/23 Z23 - Encounter for immunization
== END 2023-06-25 10:30 | disposition home or self-care (01) ==
LOC: HO.HMGFM 17:05
PROVIDERS: PCP Internal Medicine; Visit Provider Nurse Practitioner Family
DX: Z23 Encounter for immunization (principal)
CPT/HCPCS: 90471; 90715

== ENCOUNTER 2023-08-09 08:51 | Outpatient (REF) | payer OTHER, SELFPAY ==
[2023-08-09 15:01] LABS: CT PCR NOT DETECTED (Not Detect.); NG PCR NOT DETECTED (Not Detect.)
[2023-08-13 22:39] LABS: HPV mRNA E6/E7 rflx Not Detected (Not Detected)
== END 2023-08-09 08:52 | disposition home or self-care (01) ==
LOC: HO.LNP 08:51
PROVIDERS: PCP Internal Medicine; Visit Provider Advanced Practice Midwife
DX: Z01.419 Encounter for gynecological examination (general) (routine) without abnormal findings (principal); Z11.51 Encounter for screening for human papillomavirus (HPV); Z20.2 Contact with and (suspected) exposure to infections with a predominantly sexual mode of transmission
CPT/HCPCS: 0353U; 87624; 88142

== ENCOUNTER 2023-08-09 08:51 | Outpatient (AMB) | payer OTHER, SELFPAY ==
--- NOTE | 2023-08-09 08:56 | A.OFFVIS_ITS ---
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 Doing well with no concerns. She tries to eat healthy and stays active with exercise. BRCA positive. She was considering freezing her eggs in the future. She has yearly MRIs ordered by oncology. Using the Lilleta IUD, inserted at [facility] selected due to the Copper IUD aggravated her endometriosis. Currently is not sexually active. She denies vaginal itching and irritation. STI screening offered; she accepts. Anxious about possible exposure to HSV, no symptoms, request testing. [facility] Medical History (Updated 08/09/23 @ 09:44 by Saritha Clark CNM) Endometrioma of ovary Arthropathy, traumatic, pelvis or thigh Trauma left hip Ovarian mass History of postoperative nausea and vomiting Ovarian anomaly BRCA gene mutation positive Vitamin D deficiency Hx of migraine headaches Surgical History History of sleeve gastrectomy Hx of wisdom tooth extraction History of cholecystectomy Family History Maternal Grandmother History of breast cancer Paternal Aunt History of breast cancer History of ovarian cancer Paternal Grandmother History of breast cancer Maternal Grandfather History of lung cancer Father Lymphoma Mother Hypertension Sister No problems noted. 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 [place] Sexual orientation: Straight/Heterosexual Gender identity: Female Female Reproductive History Menstrual Age of Menarche: 14 control method: progestin IUCD (Liletta 03/2023) Total pregnancies: 0 Date of last pap smear: 07/14/21 (neg) Review of Systems Const All systems reviewed & are unremarkable except as noted in HPI and below Reports as per HPI Eyes Reports no additional complaints ENT Reports no additional complaints Card Reports no additional complaints Resp Reports no additional complaints GI Reports as per HPI and Reports no additional complaints Reports as per HPI Musc Reports no additional complaints Skin/Breast Reports as per HPI Neuro Reports no additional complaints Psych Reports no additional complaints Endo Reports no additional complaints Dev/Lymph Reports no additional complaints Aller/Immun Reports no additional complaints Physical Exam Vital Signs: Last Vital Signs BP 122/84 08/09/23 08:57 BMI result Body Mass Index 42.9 Const General: cooperative, healthy appearing, no acute distress, well developed and alert Orientation/consciousness: patient oriented x3 HEENT Head: Yes normal to inspection Eyes General: appearance normal, both eyes and all related structures Neck Neck: Yes normal visual inspection Thyroid: Thyroid normal Chest Chest palpation & inspection: normal inspection of the chest and other (no puckering, dimpling, peau de orange, retraction, discharge, masses) Breast/axilla inspection: normal inspection of the breasts Breast/axilla palpation: normal palpation of the breasts Resp Effort & Inspection: normal respiratory effort GI Inspection: Yes normal to inspection Palpation (GI): Soft to palpation Rectal Exam - Female: deferred General: Yes bladder normal to palpation External Female Exam: normal external appearance and normal appearance of the urethra Speculum Exam - Vagina: normal appearance of the vagina, normal palpation and normal vaginal discharge Speculum Exam - Cervix: normal appearance of the cervix, normal palpation and Other cervical findings present (IUD string present, bled slightly with pap) Bimanual exam- vagina & uterus: normal bimanual exam, normal palpation, uterine size normal, bladder normal to palpation, normal palpation and non-tender Bimanual Exam- Adnexa, other: no masses Skin General skin exam: no rashes or lesions noted Rashes: no rashes Neuro General: patient oriented x3 Cognition (Neuro): normal cognition Extrem General: Yes normal to inspection Psych Attitude: cooperative Thought process: Normal thought process present Assessment & Plan Assessment & Plan (1) Encounter for well woman exam with routine gynecological exam: Code(s): Z01.419 - Encounter for gynecological examination (general) (routine) without abnormal findings (2) Possible exposure to STD: Code(s): Z20.2 - Contact with and (suspected) exposure to infections with a predominantly sexual mode of transmission Plan Discussed: Current recommendations for pap smears per ASCCP guidelines. Breast awareness and periodic breast exams. Maintain a healthy lifestyle including a well balanced diet and routine exercise. Use condoms for STI and prevention. All of her questions and concerns were addressed to the best of my ability. 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 Orders: Orders Herpes Simplex Virus Ab IgG Today Z20.2 - Contact with and (suspected) exposure to infections with a predominantly sexual mode of transmission Hepatitis C Antibody Today Z20.2 - Contact with and (suspected) exposure to infections with a predominantly sexual mode of transmission Syphilis Screen Today Z20.2 - Contact with and (suspected) exposure to infections with a predominantly sexual mode of transmission CT NG by PCR Today Z20.2 - Contact with and (suspected) exposure to infections with a predominantly sexual mode of transmission Hepatitis B Core Antibody Today Z20.2 - Contact with and (suspected) exposure to infections with a predominantly sexual mode of transmission HIV Ab/Ag Today Z20.2 - Contact with and (suspected) exposure to infections with a predominantly sexual mode of transmission Pap Smear Today Z01.419 - Encounter for gynecological examination (general) (routine) without abnormal findings Coding Level of Care Code Est Pt Prev Care 18-39y(65244) Diagnoses Encounter for well woman exam with routine gynecological exam Z01.419 Possible exposure to STD Z20.2
[2023-08-09 08:57] VITALS: BP 122/84; BMI 42.9
== END 2023-08-09 09:45 | disposition home or self-care (01) ==
PROVIDERS: PCP Internal Medicine; Visit Provider Advanced Practice Midwife
DX: Z01.419 Encounter for gynecological examination (general) (routine) without abnormal findings (principal); Z20.2 Contact with and (suspected) exposure to infections with a predominantly sexual mode of transmission
CPT/HCPCS: 99395

== ENCOUNTER 2023-08-09 12:50 | Outpatient (REF) | payer OTHER, SELFPAY ==
[2023-08-10 03:42] LABS: Syphilis Screen Nonreactive (Nonreactive)
[2023-08-10 03:52] LABS: Hepatitis B Core Antibody Nonreactive (Nonreactive); ~HepC Num1 0.29 S/CO (0.00-0.79); ~Hepatitis C Antibody Nonreactive (Nonreactive)
[2023-08-10 04:57] LABS: HIV AB/AG Nonreactive (Nonreactive); HIV Num 1 0.05 S/CO (0.00-0.99)
== END 2023-08-09 12:51 | disposition home or self-care (01) ==
LOC: HO.WFDLDS 12:50
PROVIDERS: Visit Provider Advanced Practice Midwife
DX: Z11.4 Encounter for screening for human immunodeficiency virus [HIV] (principal); Z20.2 Contact with and (suspected) exposure to infections with a predominantly sexual mode of transmission
CPT/HCPCS: 36415; 86704; 86780; 86803; 87389